=== PATIENT | female | born 1925 | race Caucasian/White ===

== ENCOUNTER → 2017-02-03 08:30 | Day surgery (SDC) | payer MEDICARE, OTHER ==
[2017-01-31 12:15] LABS: BASOPHILS 0.3 % (0-2); EOSINOPHILS 1.1 % (0-7); HEMATOCRIT 30.7 % (36.0-48.0); HEMOGLOBIN 10.4 g/dL (12-16); IMMATURE GRANULOCYTES 0.2 % (0-5); LYMPHOCYTES 17.5 % (15-50); MCH 31.6 pg (26.0-34.0); MCHC 33.9 g/dL (31.0-37.0); MCV 93.3 fL (80.0-100.0); MEAN PLATELET VOLUME 9.8 fL (7.4-10.4); MONOCYTES 13.1 % (2-11); NEUTROPHILS 67.8 % (40-80); RBC 3.29 10x6/uL (4.00-5.40); RDW 15.1 % (11.5-14.5); WBC 6.3 10x3/uL (4.8-10.8)
[2017-01-31 12:16] LABS: PLATELET COUNT 267 10x3/uL (130-400)
[2017-01-31 12:38] LABS: ANION GAP 13.9 mmol/L (8-16); CALCIUM 9.1 mg/dL (8.5-10.1); CARBON DIOXIDE 27.1 mmol/L (21.0-32.0); CREATININE - SERUM 1.1 mg/dL (0.6-1.3)
[~2017-02-03] VITALS: Ht 152.4 cm; Wt 52.6 kg
[~2017-02-03 08:30] MED LIST: ACETAMINOPHEN325 MG PO; ASPIRIN EC81 M1 PO; BAYER CHEWABLE81 MG PO; BYSTOLIC5 MG PO; CALCIUM 600 +1 EAC3 PO; EZFE 200200 MG PO; FISH OIL 1,0001 CA1 PO; FOLIC ACID1 MG PO; HYDROCODONE-APA1 TAB PO; LOZOL1.25 MG PO; METHOTREXATE2.5 MG PO; NIASPAN500 MG PO; PEPCID20 MG PO; PRESERVISION AR1 CAP PO; REQUIP0.25 MG PO; STALEVO 100 TAB1 TAB PO; SYNTHROID50 MCG PO; TRIBENZOR 40-51 EACH PO; ULTRAM50 MG PO; VITAMIN D31000 UNI2 PO; XANAX0.5 MG PO; ZOCOR10 MG PO
[2017-02-03 10:17] VITALS: Ht 152.4 cm; Wt 52.6 kg
--- NOTE | 2017-02-03 15:08 | NUR ---
CONSULTED ANESTHESIA BECAUSE PATIENT WAS COMPLAINING THAT SHE COULD NOT BREATH. DUONEB UPDRAFT ORDERED PER DR KELLEY. ADMINISTERED UPDRAFT. TOLERATED WITHOUT COMPLAINTS.
--- NOTE | 2017-02-03 15:09 | NUR ---
RACEMIC UPDRAFT ORDERED PER DR. KELLEY AFTER PATIENT CONTINUED TO COMPLAIN OF SHORTNESS OF BREATH. IMPROVEMENT IN BREATHING STATUS NOTED.
--- NOTE | 2017-02-03 17:19 | NUR ---
1530- PT SITTING UP WITH HOB ELEVATED. LEFT SHOULDER WITH DRESSING C/D/I, ICE APPLIES, AND ELEVATED. NO C/O PAIN OR BREATHING ISSUES. VSS. FAMILY AT BEDSIDE. WILL MONITOR. 1630- IV D/C'D, PT TOLERATED. CATHETER INTACT. 1645- DISCHARGE INSTRUCTION COMPLETED, VERBALIZED UNDERSTANDING. PAPERWORK SIGNED. 1650- PT DISCHARGED VIA WHEELCHAIR WITH FAMILY.
--- NOTE | 2017-02-03 17:41 | NUR ---
VITAL SIGNS: 1530- BP: 95/75 HR:72 RR: 20 O2:100% (RA) 1545- BP: 117/58 HR: 71 RR: 20 O2: 100% (RA) 1600- BP: 115/54 HR: 69 RR: 20 O2: 99% (RA) PAIN: 0/10
--- NOTE | 2017-02-03 20:05 | NUR ---
1415 PT COMPLAINED OF HAVING TIGHTNESS IN HER THROAT AND HAVING SHORTNESS OF BREATH. I INFORMED DR. KELLEY OF THE ABOVE. HE ORDERED RACEMIC UPDRAFT TREATMENT. THIS WAS ADMINISTERED VIA NEBULIZER. PT TOLERATED THIS WITHOUT COMPLAINT. O2 SAT WAS 100% OF 2L.
== END | disposition home or self-care (01) ==
LOC: D.OPS 08:30 → D.PAN 11:00 → D.OPS 14:15 → D.PAN 14:30 → D.OPS 15:15 → D.PAN 16:30 → D.OPS 16:30
PROVIDERS: Anesthesiology
DX: M25.512 Pain in left shoulder (principal); M24.012 Loose body in left shoulder; I25.10 Atherosclerotic heart disease of native coronary artery without angina pectoris; I10 Essential (primary) hypertension; K21.9 Gastro-esophageal reflux disease without esophagitis; Z95.5 Presence of coronary angioplasty implant and graft; E03.9 Hypothyroidism, unspecified; Z01.812 Encounter for preprocedural laboratory examination